=== PATIENT | female | born 1970 | race Caucasian/White ===

== ENCOUNTER 2017-02-28 07:04 | Day surgery (SDC) | payer OTHER ==
[2017-02-27 11:52] VITALS: BMI 25.1
[2017-02-28] VITALS (14 sets, daily range): BP systolic 91–110; BP diastolic 51–64; PULSE 42–69; RESP 9–20; Ht 172.7 cm; Wt 74.0 kg
[~2017-02-28] VITALS: Ht 172.7 cm; Wt 74.0 kg
[2017-02-28] MEDS ORDERED: DOXY100T20 PO (07:55)
--- NOTE | 2017-02-28 08:03 | RADRPT ---
PROCEDURE: XR Chest. CLINICAL INDICATION: Preoperative TECHNIQUE: Single frontal view of the chest was obtained COMPARISON: None FINDINGS: The heart and mediastinum are within normal limits. There is a right chest wall port in place. There are bilateral breast implants noted. The lungs are clear. There is no pleural effusion or pneumothorax. RPTAT: AA IMPRESSION: No acute disease. .Indra Alcaraz MD, MD Date Time Electronically viewed and signed by .Indra Alcaraz MD, on 02/28/2017 08:03 .S/
--- NOTE | 2017-02-28 08:55 | HPN ---
Date/Time of Note Date/Time of Note DATE: 02/28/17 TIME: 08:54 Interval H&P Admission Note Pt. seen H&P reviewed: No system changes VETO LIVINGSTON MD Feb 28, 2017 08:55
[2017-02-28] MEDS ORDERED: POLYMYXIN/BACITRACIN 1L IRRIG ONE (09:02)
[2017-02-28] MEDS ORDERED: BUPIVACAINE 0.5%/EPI (SDV) 30 ML INJ ONE (09:02)
[2017-02-28] MEDS ORDERED: GENTAMICIN 80 MG INJ ONE (09:02)
[2017-02-28] MEDS ORDERED: MIDAZOLAM 1 MG/ML 2 ML INJ ONE (09:17)
[2017-02-28] MEDS ORDERED: FENTAnyl 50 MCG/ML VIAL ONE ×2 (09:18→09:41)
--- NOTE | 2017-02-28 09:32 | OPR ---
Date/Time of Note Date/Time of Note DATE: 02/28/17 TIME: 09:20 Operative Report Free Text/Dictation Plastic Surgery Operative Report Preoperative diagnosis: bilateral reconstructed breast with partial NAC necrosis Postoperative diagnosis: same Procedure:bilateral groundsman removal, implant placement, and revision Surgeon: perfecto Soto.: none Anesthesia: gen EBL: min IV fluids: per flow sheet Findings: n/a Complications: none Dispo: home Indications for procedure: 46-year-old female presents today for removal of her expanders, placement of implants, and revision of necrotic areas on her bilateral nipple areolar complex. The risks, benefits, alternatives of performing these procedures were discussed with the patient including the risks of bleeding, infection, wound healing problems, asymmetry, changes in nipple sensation, need for revision, and the patient states that she understands these risks and would like to proceed with the procedure. All questions were answered , no guarantees were given with regards to the outcome of these procedures. Given her complicated postoperative history, we do not consider that this will be the final procedure that she will need, and in a separate stage in the future , we may reconsider additional modifications. Description of procedure: The patient was brought to the operating room at [facility] where general anesthesia was induced and she was prepped and draped in usual sterile fashion with ChloraPrep. A total of 5 cc of 0.25% Marcaine with 1: 100,000 epinephrine were injected into the planned incision sites in each breast. Right breast incision was then made with the 10 blade and electrocautery was used to dissect down to the implant pocket. The capsule was opened and the groundsman was removed. The groundsman was evacuated and there were a total of 390cc present within it. Therefore, a [id number] FF sizer was opened, rinsed in antibiotic irrigation, and was inserted into the right breast. This was too small and therefore an Allergan 475FF sizer was open , rinsed in antibiotic irrigation, gave the desired size and shape, but was too far laterally displaced. Therefore, the sizer was removed, hemostasis was achieved with electrocautery, the breast was irrigated with antibiotic irrigation, and then a lateral capsulorraphy was carried out with 2-0 PDS suture followed by a lateral capsulotomy. Extensive anterior and inferior capsulotomies were carried out and a small amount of non-incorporated alloderm was removed. The sizer was replaced and this gave the desired position. A moist lap pad was placed over the incision. A similar procedure was carried out on the contralateral breast. Left breast incision was made with a 10 blade and electrocautery was used to dissect down to the implant pocket. The pocket was opened and the groundsman was removed. A moderate amount of non-incorporated alloderm was excised sharply from the anterior breast. Hemostasis was achieved with electrocautery and the breast was irrigated with antibiotic irrigation. The 475cc sizer was placed into the left breast and the breasts were symmetric. A small amount of excess skin was excised from the left lateral incision area. Therefore, the sizer was removed, the breasts were irrigated once again with antibiotic irrigation, a final round of hemostasis was carried out with electrocautery, gloves were changed, and then an [employer] 410 style FF 475cc implant SN [id number] was opened, rinsed antibiotic irrigation , was inserted into the right breast. The same size and style implant serial number [id number] was opened, rinsed in antibiotic irrigation, and was inserted into the left breast. The breasts were inspected and were symmetric. Therefore , the incisions were closed with 2-0 Vicryl suture on a capsule followed by 3-0 Vicryl suture and 4-0 Monocryl suture on the skin. The skin was dressed with dermabond. Next, the right breast was inspected and the area of scabbing was evaluated. The scab was removed and there was a small wound. To help facilitate healing, the wound was excised sharply with the 10 blade circumferentially around the wound and then through the base. hemostasis was achieved with the electrocautery, and then the incision was closed with 5-0 vicryl suture followed by 5-0 nylon suture. She tolerated the procedure well, there were no complications, follow up information and wound care instructions were given Preoperative Diagnosis BRCA gene mutation with acquired absence of breasts Postoperative Diagnosis same Surgeon see signature line Pipe Cleaner none Anesthesia Type: general Estimated Blood Loss: minimal Transfusion none Specimen right breast wound Grafts/Implants bilateral breast implants Complications none Procedure Description see free text VETO LIVINGSTON MD Feb 28, 2017 09:32
[2017-02-28] MEDS ORDERED: DEXAMETHASONE 4 MG/ML 1 ML INJ ONE (09:40)
[2017-02-28] MEDS ORDERED: ROCURONIUM 50 MG INJ ONE (09:40)
[2017-02-28] MEDS ORDERED: LIDOCAINE 2% (SDV) 5 ML INJ ONE (09:40)
[2017-02-28] MEDS ORDERED: CEFAZOLIN 1 GM INJ ONE (09:40)
[2017-02-28] MEDS ORDERED: PROPOFOL 100 ML ONE (09:40)
[2017-02-28] MEDS ORDERED: ONDANSETRON 4 MG INJ ONE (11:09)
[2017-02-28] MEDS ORDERED: METOCLOPRAMIDE 10 MG INJ IV PRN (11:30)
[2017-02-28] MEDS ORDERED: hydrALAzine 20 MG INJ IV PRN (11:30)
[2017-02-28] MEDS ORDERED: DIPHENHYDRAMINE 50 MG INJ IV PRN (11:30)
[2017-02-28] MEDS ORDERED: FENTAnyl 50 MCG/ML VIAL IV PRN ×3 (11:30)
[2017-02-28] MEDS ORDERED: LABETALOL HCL 20MG INJ IV PRN (11:30)
[2017-02-28] MEDS ORDERED: MEPERIDINE 25 MG INJ IV PRN (11:30)
[2017-02-28] MEDS ORDERED: KETOROLAC 30 MG INJ IV PRN (11:30)
[2017-02-28] MEDS ORDERED: ONDANSETRON 4 MG INJ IV PRN (11:30)
[2017-02-28] MEDS ORDERED: EPHEDrine SULFATE 50 MG/5 ML SYG IV PRN (11:30)
[2017-02-28] MEDS ORDERED: HYDROmorphONE (0.2 MG/ML) 10ML SYG IV PRN ×2 (11:30)
== END 2017-02-28 13:30 | disposition home or self-care (01) ==
LOC: SDS 07:04
PROVIDERS: ATTEND Surgery Plastic and Reconstructive Surgery
DX: Z42.1 Encounter for breast reconstruction following mastectomy (principal); N64.89 Other specified disorders of breast; Z15.01 Genetic susceptibility to malignant neoplasm of breast; Z85.43 Personal history of malignant neoplasm of ovary; Z87.891 Personal history of nicotine dependence; I45.6 Pre-excitation syndrome
CPT/HCPCS: 71010; C1789; J0690; J1100; J1580; J2250; J2405; J3010